=== PATIENT | male | born 1955 | race Asian ===

== ENCOUNTER → 2017-03-27 | Outpatient (CLI) | payer OTHER | END | disposition home or self-care (01) | LOC: RADPV 12:10 | PROVIDERS: ATTEND Family Medicine | DX: M17.12 Unilateral primary osteoarthritis, left knee (principal); S83.8X2A Sprain of other specified parts of left knee, initial encounter; X58.XXXA Exposure to other specified factors, initial encounter; Y93.9 Activity, unspecified; Y99.9 Unspecified external cause status; Y92.9 Unspecified place or not applicable ==